=== PATIENT | male | born 1940 | race Caucasian/White ===

== ENCOUNTER → 2021-02-12 | Outpatient (CLI) | payer MEDICARE ==
--- NOTE | 2021-02-12 14:00 | RAD ---
INDICATION: Reason: CKD STAGE 3 / Spl. Instructions: / History: COMPARISON: None. TECHNIQUE: Grayscale and color ultrasound images obtained of the bilateral kidneys and bladder. FINDINGS: Right Kidney: 105 mm. No hydronephrosis. Left Kidney: 93 mm. No hydronephrosis. Lobulated appearance of the cortex. Bladder: Suspected diverticulum off of the urinary bladder measuring approximately 15 mm. Soft tissue density with mass effect on the urinary bladder could be secondary to prostate. Bilateral ureter jet s. IMPRESSION: * Lobulated appearance of the bilateral renal cortex without hydronephrosis. * Bladder diverticulum. * Prostate prominent in size with prominent internal vascularity. Electronically signed by: Mauricio Dotson MD (02/12/2021 1:58 PM) [id number]
== END ==
LOC: US 10:43
PROVIDERS: ATTEND Family Medicine
DX: N18.30 Chronic kidney disease, stage 3 unspecified (principal); N32.3 Diverticulum of bladder
CPT/HCPCS: 76770

== ENCOUNTER 2021-04-24 13:53 | Emergency (ER) | payer MEDICARE ==
[~2021-04-24] VITALS: Ht 175.3 cm; Wt 72.0 kg
[2021-04-24] MEDS ORDERED: VANCOMYCIN PER PHARMACY MC PRN (14:15)
[2021-04-24 14:50] LABS: BASO % 1 % (0-3); EOS # 0.5 x10^3/uL (0.0-0.7); EOS % 5 % (0-3); HEMATOCRIT 31.4 % (39.0-53.0); HEMOGLOBIN 10.3 g/dL (13.0-17.5); LYMPH # 1.7 x10^3/uL (1.0-4.8); LYMPH % 19 % (24-48); MEAN CORPUSCULAR HEMOGLOBIN 31 pg (25-35); MEAN CORPUSCULAR HGB CONC 33 g/dL (31-37); MEAN CORPUSCULAR VOLUME 94 fL (79-100); MONO # 0.8 x10^3/uL (0.0-1.1); MONO % 9 % (0-9); NEUT % 67 % (31-73); PLATELET COUNT 264 x10^3/uL (140-400); RED BLOOD COUNT 3.34 x10^6/uL (4.30-5.70); RED CELL DISTRIBUTION WIDTH 13.1 % (11.5-14.5)
[2021-04-24 14:52] LABS: CALCIUM 9.1 mg/dL (8.5-10.1); CREATININE 2.1 mg/dL (0.7-1.3); GFR 30.5; POTASSIUM 4.8 mmol/L (3.5-5.1)
--- NOTE | 2021-04-24 14:53 | RAD ---
XR RT TIBIA+FIBULA , XR EXAM OF ANKLE_RIGHT 3VIEWS, XR KNEE 3 VIEWS_RT History: Right knee pain, replacement one week ago. Comparison: None. Technique: 3 views of the right knee. 2 views the right tibia and fibula. 3 views the right ankle. Findings: Osseous mineralization is normal. There is no fracture or dislocation. There are postsurgical feature s of the right knee status post arthroplasty. The distal femur and proximal tibial components are wel l seated. Alignment is anatomic. There is diffuse soft tissue swelling about the knee. Small suprapat ellar effusion. No fracture or dislocation in the right tibia and fibula and right ankle. Degenerative/posttraumatic changes at the medial and lateral malleolus. The talar dome and ankle mortise are intact. Degenerativ e changes at the talonavicular joint. Small Achilles insertion enthesophyte. Impression: 1. Postsurgical features from right knee arthroplasty in normal alignment without evidence of compli cation. 2. No acute osseous abnormality in the right knee, tibia and fibula, and right ankle. Electronically signed by: Alex Coates MD (04/24/2021 2:51 PM) [facility]
[2021-04-24 14:57] LABS: ALBUMIN 3.1 g/dL (3.4-5.0); ALBUMIN/GLOBULIN RATIO 0.9 (1.0-1.7); TOTAL BILIRUBIN 0.5 mg/dL (0.2-1.0); TOTAL PROTEIN 6.5 g/dL (6.4-8.2)
[2021-04-24] MEDS ORDERED: VANCOMYCIN 1.75 GM in IV NORMAL SALINE 500ML 500 ML IV ONE (15:00)
--- NOTE | 2021-04-24 15:11 | RAD ---
INDICATION: Reason: r leg swelling, s/p surgery / Spl. Instructions: / History: COMPARISON: None. TECHNIQUE: Grayscale, color and doppler ultrasound images were obtained of the right lower extremity venous vasculature. RIGHT: No thrombus identified in the common femoral vein, femoral vein, popliteal vein or visualized calf ve ins. Edema of soft tissues. No greater saphenous thrombus is seen. IMPRESSION: * No thrombus identified in deep venous system of right lower extremity. Electronically signed by: Mauricio Dotson MD (04/24/2021 3:09 PM) [id number]
--- NOTE | 2021-04-24 15:22 | PHYS DOC ---
Past History Additional Past Medical Histor: kidney problems Past Surgical History: Knee Replacement, Other Additional Past Surgical Histo: back fusion, coronary stents, neck surgery, and sinus surgery. Alcohol Use: None General Adult EDM: Chief Complaint: KNEE INJURY HPI: HPI: 81-year-old male past medical history of hypertension, hyperlipidemia and osteoarthritis, presents to the ED with complaints of right knee pain, s/p total knee replacement with Veronique approximately 1 week ago, has follow-up on the , in 2 days. Patient denies any new trauma/blunt injury. Reports pain is localized to the right knee. Upon asking states his right calf is more intense in nature, unsure if the redness is new. No relief with hydrocodone, last took at noon earlier today. Was unable to get ahold of Dr. Piper so came to the ed. PT is coming to his house. Is a poor historian-multimedia artist at bedside assisting (patient consents to his/her/their knowledge and involvement in pts' medical care). Review of Systems: Review of Systems: Constitutional: Denies fever or chills Eyes: Denies change in visual acuity HENT: Denies nasal congestion or sore throat Respiratory: Denies cough or shortness of breath or hemoptysis Cardiovascular: Denies chest pain or edema GI: Denies nausea, vomiting, : Denies dysuria or hematuria Musculoskeletal: Denies back pain or CVA tenderness Integument: Denies rash or diaphoresis Neurologic: Denies headache, focal weakness or sensory changes Endocrine: Denies polyuria or polydipsia Lymphatic: Denies swollen glands Psychiatric: Denies depression or anxiety Current Medications: Current Meds: Current Medications Medications (Trade) Dose Ordered Sig/Christina Start Time Stop Time Status Last Admin Dose Admin Ceftriaxone Sodium 1 gm/ Sodium Chloride 50 ml @ 100 mls/hr 1X ONCE 04/24/21 14:15 04/24/21 14:44 DC Vancomycin HCl (Vanco Per Pharmacy) 1 each PRN DAILY PRN 04/24/21 14:15 Vancomycin HCl 1.75 gm/Sodium Chloride 500 ml @ 250 mls/hr 1X ONCE 04/24/21 15:00 04/24/21 16:59 Allergies: Allergies: Allergies Coded Allergies Type Severity Reaction Last Updated Verified codeine Allergy Unknown 04/24/21 Yes niacin Allergy Unknown 04/24/21 Yes Uncoded Allergies Type Severity Reaction Last Updated Verified SULFA Allergy Unknown 04/24/21 Physical Exam: PE: Constitutional: Well developed, well nourished, no acute distress, non-toxic appearance. HENT: Normocephalic, atraumatic, Eyes: EOMI, conjunctiva normal, no discharge. Neck: Normal range of motion, supple, Cardiovascular: S1/2 present, regular rhythm Lungs & Thorax: Speaking in full sentences, bilateral equal chest rise, no tachypnea or increased work of breathing Abdomen: soft, no tenderness, Skin: Warm, dry, no erythema, no rash. [] Extremities: no cyanosis, right leg with pitting LE edema, right knee dressing has not been removed - iodine on dressing, upon removing - would incision c/d/i w/no rash or erthema, calve is tense and edematous when compared to left, dp/pt intact on right, le cap refill < 1 sec Neurologic: Alert and oriented X 3, normal motor function, normal sensory function, no focal deficits noted, Psychologic: Affect normal, judgement normal, mood normal. [] Current Patient Data: Labs: Laboratory Tests Test 04/24/21 14:16 White Blood Count 9.0 x10^3/uL (4.0-11.0) Red Blood Count 3.34 x10^6/uL (4.30-5.70) L Hemoglobin 10.3 g/dL (13.0-17.5) L Hematocrit 31.4 % (39.0-53.0) L Mean Corpuscular Volume 94 fL (79-100) Mean Corpuscular Hemoglobin 31 pg (25-35) Mean Corpuscular Hemoglobin Concent 33 g/dL (31-37) Red Cell Distribution Width 13.1 % (11.5-14.5) Platelet Count 264 x10^3/uL (140-400) Neutrophils (%) (Auto) 67 % (31-73) Lymphocytes (%) (Auto) 19 % (24-48) L Monocytes (%) (Auto) 9 % (0-9) Eosinophils (%) (Auto) 5 % (0-3) H Basophils (%) (Auto) 1 % (0-3) Neutrophils # (Auto) 6.0 x10^3uL (1.8-7.7) Lymphocytes # (Auto) 1.7 x10^3/uL (1.0-4.8) Monocytes # (Auto) 0.8 x10^3/uL (0.0-1.1) Eosinophils # (Auto) 0.5 x10^3/uL (0.0-0.7) Basophils # (Auto) 0.0 x10^3/uL (0.0-0.2) Sodium Level 145 mmol/L (136-145) Potassium Level 4.8 mmol/L (3.5-5.1) Chloride Level 108 mmol/L (98-107) H Carbon Dioxide Level 24 mmol/L (21-32) Anion Gap 13 (6-14) Blood Urea Nitrogen 38 mg/dL (8-26) H Creatinine 2.1 mg/dL (0.7-1.3) H Estimated GFR (Cockcroft-Gault) 30.5 BUN/Creatinine Ratio 18 (6-20) Glucose Level 122 mg/dL (70-99) H Lactic Acid Level 1.1 mmol/L (0.4-2.0) Calcium Level 9.1 mg/dL (8.5-10.1) Total Bilirubin 0.5 mg/dL (0.2-1.0) Aspartate Amino Transferase (AST) 21 U/L (15-37) Alanine Aminotransferase (ALT) 23 U/L (16-63) Alkaline Phosphatase 80 U/L (46-116) Total Protein 6.5 g/dL (6.4-8.2) Albumin 3.1 g/dL (3.4-5.0) L Albumin/Globulin Ratio 0.9 (1.0-1.7) L Vital Signs: Vital Signs Date Time Temp Pulse Resp B/P (MAP) Pulse Ox O2 Delivery O2 Flow Rate FiO2 04/24/21 13:55 99.9 71 16 127/66 98 Room Air EKG: EKG: [] Radiology/Procedures: Radiology/Procedures: []IMAGING REPORT Signed PATIENT: RAMAN DE PAZ ACCOUNT: [id number] : 1940 LOCATION: ER AGE: 81 SEX: M EXAM STATUS: REG ER ORD. PHYSICIAN: STANLEY BOLDEN DO REASON: r knee pain, replacement 1 week ago PROCEDURE: TIBIA FIBULA RIGHT XR RT TIBIA+FIBULA , XR EXAM OF ANKLE_RIGHT 3VIEWS, XR KNEE 3 VIEWS_RT History: Right knee pain, replacement one week ago. Comparison: None. Technique: 3 views of the right knee. 2 views the right tibia and fibula. 3 views the right ankle. Findings: Osseous mineralization is normal. There is no fracture or dislocation. There are postsurgical features of the right knee status post arthroplasty. The distal femur and proximal tibial components are well seated. Alignment is anatomic. There is diffuse soft tissue swelling about the knee. Small suprapatellar e ffusion. No fracture or dislocation in the right tibia and fibula and right ankle. Degenerative/posttraumatic changes at the medial and lateral malleolus. The talar dome and ankle mortise are intact. Degenerative changes at the talonavicular joint. Small Achilles insertion enthesophyte. Impression: 1. Postsurgical features from right knee arthroplasty in normal alignment without evidence of complication. 2. No acute osseous abnormality in the right knee, tibia and fibula, and right ankle. Electronically signed by: Alex Sarabia MD (04/24/2021 2:51 PM) [facility] DICTATED AND SIGNED BY: ALEX SARABIA MD DATE: 04/24/21 1448 CC: NIALL ROUSE MD; STANLEY BOLDEN DO ~MTH0 0 IMAGING REPORT Signed PATIENT: RAMAN DE PAZ ACCOUNT: [id number] : 1940 LOCATION: ER AGE: 81 SEX: M EXAM STATUS: REG ER ORD. PHYSICIAN: STANLEY BOLDEN DO REASON: r leg swelling, s/p surgery PROCEDURE: VENOUS LOWER EXTREMITY RIGHT INDICATION: Reason: r leg swelling, s/p surgery / Spl. Instructions: / History: COMPARISON: None. TECHNIQUE: Grayscale, color and doppler ultrasound images were obtained of the right lower extremity venous vasculature. RIGHT: No thrombus identified in the common femoral vein, femoral vein, popliteal vein or visualized calf veins. Edema of soft tissues. No greater saphenous thrombus is seen. IMPRESSION: * No thrombus identified in deep venous system of right lower extremity. Electronically signed by: Lisa Blanchard MD (04/24/2021 3:09 PM) [id number] DICTATED AND SIGNED BY: LISA BLANCHARD MD DATE: 04/24/21 1507 CC: NIALL ROUSE MD; DAVEYCHANDANSTANLEY Marvin DO ~MTH0 0 Heart Score: C/O Chest Pain: No Risk Factors: Risk Factors: DM, Current or recent (<one month) smoker, HTN, HLP, family history of CAD, obesity. Risk Scores: Score 0 - 3: 2.5% MACE over next 6 weeks - Discharge Home Score 4 - 6: 20.3% MACE over next 6 weeks - Admit for Clinical Observation Score 7 - 10: 72.7% MACE over next 6 weeks - Early Invasive Strategies Course & Med Decision Making: Course & Med Decision Making Pertinent Labs and Imaging studies reviewed. (See chart for details) [] Dragon Disclaimer: Dragon Disclaimer: This electronic medical record was generated, in whole or in part, using a voice recognition dictation system. Departure Departure: Impression: Primary Impression: Postoperative pain of right knee Additional Impression: Swelling of right lower extremity Disposition: 01 HOME / SELF CARE / HOMELESS Condition: STABLE Referrals: NIALL ROUSE MD (PCP) for routine care in 1-2 weeks Patient Instructions: Pain Relief Preoperatively and Postoperatively Additional Instructions: FOLLOW UP WITH ORTHOPEDICS: FOR DEFINITIVE MANAGEMENT-Dr. Piper in 1-2 days Orthopaedic Sports Medicine Orthopaedic Surgery [facility] [address] [place] [id number] EMERGENCY DEPARTMENT GENERAL DISCHARGE INSTRUCTIONS Thank you for coming to [facility] (ED) today and trusting us with you care. We trust that you had a positivie experience in our Emergency Department. If you wish to speak to the department management, you may call the director at [phone]. YOUR FOLLOW UP INSTRUCTIONS ARE FOLLOWS: 1. Do you have a private Doctor? If you do not have a private doctor, please ask for a resource list of physicians or clinics that may be able to assist you with follow up care. 2. The Emergency Physician has interpreted your x-rays. The X-Ray specialist will also review them. If there is a change in the findings, you will be notified in 48 hours when at all possible. 3. A lab test or culture has been done, your results will be reviewed and you will be notified if you need a change in treatment. ADDITIONAL INSTRUCTIONS AND INFORMATION: 1. Your care today has been supervised by a physician who is specially trained in emergency care. Many problems require more than one evaluation for a complete diagnosis and treatment. We recommend that you schedule your follow up appointment as recommended to ensure complete treatment of you illness or injury. If you are unable to obtain follow up care and continue to have a problem, or if your condition worsens, we recommend that you return to the ED. 2. We are not able to safely determine your condition over the phone nor are we able to give sound medical advice over the phone. For these safety reasons, if you call for medical advice we will ask you to come to the ED for further evaluation. 3. If you have any questions regarding these discharge instructions please call the ED at [phone]. SAFETY INFORMATION: In the interest of safety, wellness, and injury prevention; we encourage you to wear your sealbelt, if you smoke; quite smoking, and we encourage family to use a protective helmet for bicycling and other sporting events that present an increased risk for head injury. IF YOUR SYMPTOMS WORSEN OR NEW SYMPTOMS DEVELOP, OR YOU HAVE CONCERNS ABOUT YOUR CONDITION; OR IF YOUR CONDITION WORSENS WHILE YOU ARE WAITING FOR YOUR FOLLOW UP APPOINTMENT; EITHER CONTACT YOUR PRIMARY CARE DOCTOR, THE PHYSICIAN WHOSE NAME AND NUMBER YOU WERE GIVEN, OR RETURN TO THE ED IMMEDIATELY. STANLEY BOLDEN DO Apr 24, 2021 15:22
[2021-04-24] MEDS ORDERED: HYDROmorphone PF 1 MG/ML DISP.SYRIN IVP ONE (15:45)
[2021-04-24 16:00] VITALS: BP 145/74
[2021-04-24] MEDS ORDERED: IV NORMAL SALINE 50ML 50 ML ONE (16:36)
[2021-04-24] MEDS ORDERED: cefTRIAXone SODIUM 1 GM VIAL ONE (16:36)
[2021-04-24] MEDS ORDERED: HYDR-2155 PO (17:39)
== END 2021-04-24 18:09 | disposition home or self-care (01) ==
LOC: ER 13:53
DX: G89.18 Other acute postprocedural pain (principal); M25.561 Pain in right knee; R60.0 Localized edema; Z96.651 Presence of right artificial knee joint; I10 Essential (primary) hypertension; E78.5 Hyperlipidemia, unspecified; M19.90 Unspecified osteoarthritis, unspecified site; Z88.5 Allergy status to narcotic agent; Z88.1 Allergy status to other antibiotic agents
CPT/HCPCS: 36415; 73562; 73590; 73610; 80053; 83605; 85025; 87040; 93971; 96365; 96366; 96368; 96375; 99285; J0696; J1170; J3370; J7040

== ENCOUNTER 2021-09-03 18:48 | Emergency (ER) | payer MEDICARE ==
[~2021-09-03] VITALS: Ht 175.3 cm; Wt 72.0 kg
[2021-09-03 18:48] VITALS: BP 172/66
[~2021-09-03 18:48] MED LIST: HYDR-2155 PO
[2021-09-03] MEDS ORDERED: LIDOCAINE 1% Multi-Dose 20 ML VIAL. IJ ONE (19:30)
--- NOTE | 2021-09-03 19:51 | PHYS DOC ---
Past History Additional Past Medical Histor: kidney problems (MARY MONACO APRN) Past Surgical History: Knee Replacement, Other Additional Past Surgical Histo: back fusion, coronary stents, neck surgery, and sinus surgery. (MARY MONACO APRN) Alcohol Use: None (MARY MONACO APRN) General Adult EDM: Chief Complaint: LACERATION/AVULSION HPI: HPI: Patient is an 81-year-old male who presents to the emergency department for a laceration to his left fingers. Patient reports that he cut his hand on a hand saw 45 minutes prior to arrival. Patient is unsure of his last tetanus shot. He denies any decreased range of motion or decreased sensation to his extremity. (MARY MONACO APRN) Review of Systems: Review of Systems: Musculoskeletal: See HPI Integument: See HPI Neurologic: See HPI (MARY MONACO APRN) Current Medications: Current Meds: Current Medications Medications (Trade) Dose Ordered Sig/Christina Start Time Stop Time Status Last Admin Dose Admin Lidocaine HCl 20 ml 1X ONCE 09/03/21 19:30 09/03/21 19:31 DC (MARY MONACO APRN) Allergies: Allergies: Allergies Coded Allergies Type Severity Reaction Last Updated Verified codeine Allergy Unknown 04/24/21 Yes niacin Allergy Unknown 04/24/21 Yes Uncoded Allergies Type Severity Reaction Last Updated Verified SULFA Allergy Unknown 04/24/21 (MARY MONACO APRN) Physical Exam: PE: Constitutional: Well developed, well nourished, no acute distress, non-toxic appearance. [] HENT: Normocephalic, atraumatic, bilateral external ears normal, oropharynx moist, no oral exudates, nose normal. [] Eyes: PERRL, EOMI, conjunctiva normal, no discharge. [] Neck: Normal range of motion, no stridor Cardiovascular: Normal peripheral perfusion Lungs & Thorax: Normal work of breathing, no tachypnea Abdomen: Soft and flat Skin: Warm, dry, no erythema, no rash, patient has lacerations noted to the tips of his left first through fourth fingers with active bleeding ranging in sizes approximately 0.5 cm or less.. [] Back: Normal range of motion Extremities: No tenderness, no cyanosis, no clubbing, ROM intact, no edema. [] Neurologic: Alert and oriented X 3, normal motor function, normal sensory function, no focal deficits noted. [] Psychologic: Affect normal, judgement normal, mood normal. [] (MARY MONACO APRN) EKG: EKG: [] (MARY MONACO APRN) Radiology/Procedures: Radiology/Procedures: [] (MARY MONACO APRN) Heart Score: C/O Chest Pain: N/A Risk Factors: Risk Factors: DM, Current or recent (<one month) smoker, HTN, HLP, family history of CAD, obesity. Risk Scores: Score 0 - 3: 2.5% MACE over next 6 weeks - Discharge Home Score 4 - 6: 20.3% MACE over next 6 weeks - Admit for Clinical Observation Score 7 - 10: 72.7% MACE over next 6 weeks - Early Invasive Strategies (MARY MONACO APRN) Course & Med Decision Making: Course & Med Decision Making Pertinent Labs and Imaging studies reviewed. (See chart for details) [] Patient presents to the emergency department for a laceration to his left hand. Patient's tetanus is updated in the emergency department. His wound was cleansed in the emergency department. Xray shows fracture of 3rd distal finger as read by physician and search engine marketing strategist. Discussed findings with collaborating physician. Lacerations were repaired. Patient tolerated procedure. Range of motion and neuro intact. Laceration did not show any tendon involvement and there was no visible foreign bodies. gel foam and non adherent dressing placed. Patient be discharged home with an antibiotic, given first dose in ER. Patient educated on wound care and [id number] referral for [facility] hand. (MARY MONACO APRN) Dragon Disclaimer: Dragon Disclaimer: This electronic medical record was generated, in whole or in part, using a voice recognition dictation system. (MARY MONACO APRN) Laceration Repair Lac Repair Time:2100 Confirmed: Patient, procedure, site, and site correct Consent: Patient has given verbal consent Laceration location:l. 2-5 fingers Shape:varied Depth:subcutaneous tissue involvement to superficial Details: Clean with no foreign material Neurovascular, tendon exam: Intact Anesthesia:1% lidocaine Preparation: Sterile field established Irrigation: Wound irrigated with saline and betadine Debridement: Skin closure: Simple interrupted sutures placed Size of suture:5-0 ethilon Number of sutures:finger 2: 5, finger 3: 9, finger 4: 3, finger 5: 2 Complexity: Single layer Post procedure exam: Circulation, motor, sensory exam intact, bleeding controlled. Complications: None Patient tolerated: Well Performed by: self Total time: 60min (MARY MONACO APRN) Attending Co-Sign The patient was seen and interviewed as well as examined at the bedside. The chart was reviewed. The case was discussed. Agree with the plan of care. (KATLYN ROBERTS DO) Departure Departure: Impression: Primary Impression: Laceration Disposition: HOME / SELF CARE / HOMELESS Condition: GOOD Referrals: NIALL ROUSE MD (PCP) Patient Instructions: Laceration Care, Adult Additional Instructions: He was seen in the emergency department today for a laceration to your fingers. This was cleansed in the ER and you had sutures placed. Please keep your hand clean and dry, you can wash your hands with warm water and mild soap. Please do not submerge your hand in any water for approximately 48 hours. Please monitor for any signs of infection like redness, warmth, swelling or drainage. You are being discharged home with an antibiotic, please take this as directed. For your pain you can take Tylenol at home. Please make sure that you are changing her dressings as needed. You need to have the sutures removed in approximately 10 days. You can go to your primary care provider you can return to the emergency department to have them removed. You need to follow-up with [facility] hand by calling [phone] to set up an appointment. Scripts Cephalexin (KEFLEX) 500 Mg Capsule 1 CAP PO QID for infection for 7 Days, #28 CAP 0 Refills Prov: MARY MONACO APRN 09/03/21 MARY MONACO APRN Sep 03, 2021 19:51 KATLYN ROBERTS DO Sep 04, 2021 19:17
[2021-09-03] MEDS ORDERED: DIPH,PERTUSS(ACELL),TET VAC/PF 0.5 ML SYRINGE. VAX IM ONE (21:15)
[2021-09-03] MEDS ORDERED: CEPHALEXIN 250 MG CAPSULE PO ONE (21:15)
[2021-09-03] MEDS ORDERED: cefTRIAXone IM 1 GM VIAL IM ONE (22:15)
[2021-09-03] MEDS ORDERED: GELATIN SPONGE SIZE 12-7MM SPONGE. TP ONE (22:15)
[2021-09-03] MEDS ORDERED: CEPH500C PO (22:16)
--- NOTE | 2021-09-03 22:25 | RAD ---
Exam: Left hand 3 views INDICATION: Laceration to distal second through fifth digits TECHNIQUE: Frontal, lateral and oblique views left hand Comparisons: None FINDINGS: Soft tissue irregularity at the distal aspects of the second through fifth digit. Bone mineralization is normal. No acute or healed fractures. Scattered interphalangeal degenerative osteoarthritic lane e. Moderate: At the third digit MCP joint at the first CMC joint. IMPRESSION: Laceration along the distal aspect of the second through fifth digit without underlying osseous abnor mality or radiopaque foreign body identified. Electronically signed by: Norma Carranza MD (09/03/2021 10:23 PM) [facility]
[2021-09-03] MEDS ORDERED: cefTRIAXone SODIUM 1 GM VIAL ONE (22:36)
== END 2021-09-03 22:50 | disposition home or self-care (01) ==
LOC: ER 18:48
DX: S61.012A Laceration without foreign body of left thumb without damage to nail, initial encounter (principal); S61.211A Laceration without foreign body of left index finger without damage to nail, initial encounter; S61.213A Laceration without foreign body of left middle finger without damage to nail, initial encounter; S61.215A Laceration without foreign body of left ring finger without damage to nail, initial encounter; Z88.5 Allergy status to narcotic agent; Z88.1 Allergy status to other antibiotic agents; W27.0XXA Contact with workbench tool, initial encounter; Y93.89 Activity, other specified; Y92.89 Other specified places as the place of occurrence of the external cause; Y99.8 Other external cause status
CPT/HCPCS: 12001; 73130; 90471; 90715; 96372; 99284; J0696